=== PATIENT | female | born 1975 | race Caucasian/White ===

== ENCOUNTER 2020-06-22 10:04 | Observation (INO) ==
[2020-06-22] MEDS ORDERED: cefOXitin 2,000 MG in Water for inj. (sterile) 20 ML IVP ONE (10:23)
[2020-06-22] MEDS ORDERED: Ringers Solution, Lactated 1,000 ML IVC SCH ×2 (10:30→15:07)
[2020-06-22] MEDS ORDERED: *HR* HYDROmorphone PF 0.5 MG/0.5 ML SYRINGE IVP PRN (10:37)
[2020-06-22] MEDS ORDERED: Ondansetron 4 MG/2 ML VIAL IVP PRN ×2 (10:37→15:07)
[2020-06-22] MEDS ORDERED: Promethazine 6.25 MG in Water for inj. (sterile) 20 ML IVPB PRN (10:37)
[2020-06-22] MEDS ORDERED: *HR* OxyCODONE Immed Rel 5 MG TABLET PO PRN (10:37)
[2020-06-22] MEDS ORDERED: Ondansetron 4 MG/2 ML VIAL ONE (10:42)
[2020-06-22] MEDS ORDERED: *HR* Rocuronium Bromide 50 MG/5 ML VIAL ONE (10:42)
[2020-06-22] MEDS ORDERED: *HR* Succinylcholine 200 MG/10 ML VIAL IVP ONE (10:42)
[2020-06-22] MEDS ORDERED: Lidocaine -MPF 2% 2 ML VIAL ONE (10:42)
[2020-06-22] MEDS ORDERED: Ketorolac 30 MG/ML VIAL ONE (10:43)
[2020-06-22] MEDS ORDERED: *HR* Propofol 200 MG/20 ML VIAL IVP ONE (10:43)
[2020-06-22] MEDS ORDERED: Lidocaine HCL 4 ML Topical Solution (Laryng-O-Jet Kit Sterile Pak) TP ONE (10:43)
[2020-06-22] MEDS ORDERED: Sugammadex Sodium 200 MG/2 ML VIAL IV ONE (10:43)
[2020-06-22] MEDS ORDERED: *HR* Midazolam HCl 2 MG/2 ML VIAL ONE (10:43)
[2020-06-22] MEDS ORDERED: *HR* FentaNYL (PF) 100 MCG/2 ML VIAL ONE (10:43)
[2020-06-22] MEDS ORDERED: Lidocaine/EPI 1:100k 1% 50 ML VIAL ONE (12:32)
[2020-06-22] MEDS ORDERED: *HR* HYDROMORPHONE 2 MG/ML VIAL ONE (12:45)
[2020-06-22] MEDS ORDERED: Naloxone 0.4 MG/ML INJ IVP PRN (15:07)
[2020-06-22] MEDS ORDERED: Sennosides 8.6 MG TABLET PO PRN (15:07)
[2020-06-22] MEDS: *HR* OxyCODONE Immed Rel 5 MG TABLET PO PRN ×2 (16:34→20:38)
[2020-06-22] MEDS: Ibuprofen 600 MG TABLET PO SCH (18:18)
[2020-06-22] MEDS: Acetaminophen 325 MG TABLET PO SCH (18:18)
[2020-06-23] MEDS: Ibuprofen 600 MG TABLET PO SCH ×5 (00:11→23:24)
[2020-06-23] MEDS: Acetaminophen 325 MG TABLET PO SCH ×4 (00:11→18:41)
[2020-06-23] MEDS: *HR* OxyCODONE Immed Rel 5 MG TABLET PO PRN ×5 (03:05→20:07)
[2020-06-24] MEDS: Acetaminophen 325 MG TABLET PO SCH ×3 (00:57→12:47)
[2020-06-24] MEDS: *HR* OxyCODONE Immed Rel 5 MG TABLET PO PRN ×3 (00:58→10:44)
[2020-06-24] MEDS: Ibuprofen 600 MG TABLET PO SCH ×2 (06:04→08:37)
[2020-06-24 10:16] VITALS: BP 88/48
== END 2020-06-24 13:15 | disposition home or self-care (01) ==
LOC: 1NENUOBS 10:04 → SAMDAY 10:04 → 1NENUOBS 15:07
PROVIDERS: ADMIT Student in an Organized Health Care Education/Training Program; ATTEND Student in an Organized Health Care Education/Training Program
PROC: GYNLAVH (ICD-10-PCS; 2020-06-22 12:15)